=== PATIENT | male | born 1945 | race Caucasian/White ===

== ENCOUNTER → 2018-10-07 10:30 | Outpatient (CLI) | payer MEDICARE, OTHER ==
[2014-10-05 09:34] VITALS: BMI 26.5
[~2018-10-07 10:30] MED LIST: FELODIPINE ER10 MG PO; FOLIC ACID1 MG PO; LEVOXYL75 MCG PO; LIBRIUM25 MG PO; MULTI-DAY VITAM1 TAB PO; THERAGRAN M [BK1 TAB PO; VASOTEC20 MG PO
== END | disposition home or self-care (01) ==
LOC: D.US 10:30
PROVIDERS: ATTEND Nurse Practitioner Family
DX: R22.1 Localized swelling, mass and lump, neck (principal)